=== PATIENT | male | born 1965 | race Caucasian/White ===

== ENCOUNTER → 2020-02-13 | Outpatient (CLI) | payer OTHER ==
[~2020-02-13] MED LIST: ASPI81TA45 PO; BENA40TA3 PO; DAPA1TAB5 PO; None at this time; PRAV40TA2 PO
[2020-02-13 10:35] LABS: ALBUMIN 3.8 g/dL (3.4-5.0); ANION GAP 7 mmol/L (5-15); CALCIUM 9.1 mg/dL (8.5-10.1); CHLORIDE 109 mmol/L (98-107)
[2020-02-13 10:39] LABS: ALANINE AMINOTRANSFERASE 27 U/L (12-78); ALKALINE PHOSPHATASE 94 U/L (45-117); BILIRUBIN,TOTAL 0.5 mg/dL (0.2-1.0); CREATININE 1.03 mg/dL (0.7-1.3); TOTAL PROTEIN 7.1 g/dL (6.4-8.2)
== END | disposition home or self-care (01) ==
LOC: STAR 08:25
PROVIDERS: ATTEND Orthopaedic Surgery
DX: Z01.812 Encounter for preprocedural laboratory examination (principal); Z20.828 Contact with and (suspected) exposure to other viral communicable diseases; M75.22 Bicipital tendinitis, left shoulder; S46.012A Strain of muscle(s) and tendon(s) of the rotator cuff of left shoulder, initial encounter; X58.XXXA Exposure to other specified factors, initial encounter; Y93.89 Activity, other specified; Y92.89 Other specified places as the place of occurrence of the external cause; Y99.8 Other external cause status
CPT/HCPCS: 36415; 80053; 87635; 93005

== ENCOUNTER 2020-02-18 08:56 | Day surgery (SDC) | payer OTHER ==
[~2020-02-18] VITALS: Ht 175.3 cm; Wt 99.3 kg
[~2020-02-18 08:56] MED LIST changes: +BUPIVACAINE/PF 0.25% ONE
[2020-02-18] MEDS ORDERED: CHLORHEXIDINE 15 ML UDC MM ONE (09:30)
[2020-02-18 09:33] VITALS: BP 133/88
[2020-02-18] MEDS ORDERED: FENTANYL PF 100 MCG/2ML ONE ×2 (09:46→10:45)
[2020-02-18] MEDS ORDERED: MIDAZOLAM 1 MG/ML, 2ML ONE (09:46)
[2020-02-18] MEDS ORDERED: LIDOCAINE-MPF 1%, 2ML INFIL ONE (10:00)
[2020-02-18] MEDS ORDERED: LACTATED RINGERS 1,000 ML IV SCH (10:00)
[2020-02-18] MEDS ORDERED: GLYCOPYRROLATE 0.2MG/1ML, 5ML ONE (10:19)
[2020-02-18] MEDS ORDERED: ROCURONIUM 10MG/ML,5ML ONE (10:19)
[2020-02-18] MEDS ORDERED: LIDOCAINE-MPF 1%, 2ML ONE (10:19)
[2020-02-18] MEDS ORDERED: PHENYLEPHRINE 10 MG/ML ONE (10:19)
[2020-02-18] MEDS ORDERED: PROMETHAZINE 25 MG/ML, 1ML IVPush PRN (11:00)
[2020-02-18] MEDS ORDERED: MEPERIDINE/PF 25MG/0.5ML IVPush PRN (11:00)
[2020-02-18] MEDS ORDERED: OXYcodone 5 MG/5 ML ORAL.SOL UDC PO PRN (11:00)
[2020-02-18] MEDS ORDERED: FENTANYL PF 100 MCG/2ML IV PRN (11:00)
[2020-02-18] MEDS ORDERED: LORazepam 2 MG/ML, 1ML IVPush PRN (11:00)
[2020-02-18] MEDS ORDERED: HYDROmorphone 1 MG/ML, 1ML INJ IVPush PRN (11:00)
[2020-02-18] MEDS ORDERED: ACETAMINOPHEN 325 MG TABLET PO PRN (11:00)
[2020-02-18] MEDS ORDERED: CEFAZOLIN 1,000 MG ONE (11:17)
[2020-02-18] MEDS ORDERED: BUPIVACAINE/PF 0.5% ONE (11:17)
[2020-02-18] MEDS ORDERED: DEXAMETHASONE 4 MG/ML, 1ML ONE (11:17)
[2020-02-18] MEDS ORDERED: ONDANSETRON 2MG/ML, 2ML ONE (11:17)
[2020-02-18] MEDS ORDERED: PROPOFOL 10 MG/ML, 20ML ONE (11:17)
== END 2020-02-18 12:45 | disposition home or self-care (01) ==
LOC: OUT 08:56
PROVIDERS: ATTEND Orthopaedic Surgery
DX: M75.22 Bicipital tendinitis, left shoulder (principal); M24.112 Other articular cartilage disorders, left shoulder; M25.512 Pain in left shoulder; M19.019 Primary osteoarthritis, unspecified shoulder; M25.612 Stiffness of left shoulder, not elsewhere classified; I10 Essential (primary) hypertension; E78.5 Hyperlipidemia, unspecified; E11.9 Type 2 diabetes mellitus without complications; Z98.890 Other specified postprocedural states; Z79.899 Other long term (current) drug therapy; Z72.89 Other problems related to lifestyle; Z79.82 Long term (current) use of aspirin; Z82.3 Family history of stroke; Z82.49 Family history of ischemic heart disease and other diseases of the circulatory system
CPT/HCPCS: 23430; 29822; 29826; 64415; 82962; C1713; J0690; J1100; J2250; J2370; J2405; J2704; J3010